=== PATIENT | female | born 1965 | race Caucasian/White ===

== ENCOUNTER 2018-02-06 10:17 | Outpatient (CLI) | payer MEDICARE, MEDICAID ==
[~2018-02-06] VITALS: Ht 165.1 cm; Wt 95.3 kg
[2018-02-06 11:36] VITALS: BP 113/70
[2018-02-06] MEDS ORDERED: HALOPERIDOL1 MG ORAL (11:41)
[2018-02-06] MEDS ORDERED: ABILIFY10 MG ORAL (11:41)
[2018-02-06] MEDS ORDERED: LORAZEPAM1 MG ORAL (11:41)
[2018-02-06] MEDS ORDERED: DEPAKOTE500 MG PO (11:41)
[2018-02-06] MEDS ORDERED: CYMBALTA60 MG ORAL (11:41)
--- NOTE | 2018-02-07 12:17 | GI Initial Consult Note ---
History of Present Illness General Date patient seen: Feb 06, 2018 Time patient seen: 12:14 Referring physician: MITCHEL ROWE Reason for Consultation: ABDOMINAL PAIN Present Illness HPI 52 year old female patient presents today with c/o of lower abdominal pain. In addition, has diarrhea. Denies any recent travels. No current use of antibiotic. Denies any unintentional weight loss or changes in dietary habits. No signs of abuse or neglect. Patient is not fall risk. No known history of endoscopy / colonoscopy. Home Meds Reported Medications Duloxetine Hcl* (CYMBALTA*) 60 Mg Capsule.dr, ORAL DAILY, CAP 02/06/18 Lorazepam* (LORAZEPAM*) 1 Mg Tablet, ORAL THREE TIMES A DAY, TAB 02/06/18 Aripiprazole* (ABILIFY*) 10 Mg Tablet, ORAL DAILY, TAB 02/06/18 Haloperidol* (HALDOL*) 1 Mg Tablet, ORAL EVERY 6 HOURS, #20 TAB 0 Refills 02/06/18 Divalproex Sodium (Depakote) 500 Mg Tablet.dr, 1000 MG PO BID, TAB 02/06/18 Med list reviewed/reconciled: Yes Allergies: Coded Allergies: No Known Allergies (Unverified , 02/06/18) Patient History History Provided By: Patient, Medical Record PMH Narrative Seizure No surgical history. Pertinent Family History: none Social History: Denies: smoking, alcohol use, drug use, other Review of Systems All Other Systems: negative except mentioned in HPI Physical Exam Vital Signs Date Time Temp Pulse Resp B/P (MAP) Pulse Ox O2 Delivery O2 Flow Rate FiO2 02/06/18 11:36 97.5 77 16 113/70 97 97.5 Sp02 EP Interpretation: reviewed, normal General Appearance: well appearing, no apparent distress, alert Head: normocephalic EENT: PERRL/EOMI, normal ENT inspection Neck: supple Respiratory: normal breath sounds, no respiratory distress Cardiovascular: normal rate Gastrointestinal: normal inspection, non tender, soft, normal bowel sounds, non -distended Rectal: deferred Genitourinary: no CVA tenderness Musculoskeletal: normal inspection, back normal Neurologic: normal inspection, alert, oriented x3, responsive Psychiatric: normal inspection, judgement/insight normal, memory normal Skin: normal inspection, normal color, no rash, warm/dry, palpation normal, well hydrated Lymphatic: normal inspection, no adenopathy GI: Plan Problems: (1) IBS (irritable bowel syndrome) (2) Abdominal pain (3) Seizure (4) Colonoscopy planned Plan Colonoscopy scheduled 02/12/18, r/o IBS - CLD & (Nulytely/Suprep/Movi-Prep) prep instructions given and acknowledged by patient. - NPO @ PR day prior procedure explained. Rx VSL #[address] Domingo. Thank you for this patient referral. The patient was seen and examined at bedside and all new and available data was reviewed in the patients chart. I agree with the above findings, impression and plan. (Patient seen earlier today. Signature stamp does not reflect patient encounter time.). - MD Arely Fraser,[facility] PMO PROJECT MANAGER Feb 07, 2018 12:17
== END 2018-02-06 10:40 | disposition home or self-care (01) ==
LOC: PAN 10:17
DX: R10.30 Lower abdominal pain, unspecified (principal); K58.9 Irritable bowel syndrome, unspecified; G40.909 Epilepsy, unspecified, not intractable, without status epilepticus
CPT/HCPCS: 99201